=== PATIENT | male | born 1950 | race Caucasian/White ===

== ENCOUNTER 2021-05-26 15:33 | Emergency (ER) | payer OTHER ==
[~2021-05-26] VITALS: Ht 172.7 cm; Wt 80.3 kg
--- NOTE | ~2021-05-26 | EMS ---
[facility] [address] [place] [address] EMS Patient Care Report Name: WON CHEN Room #: REG MEGHAN Alvarenga#: [id number] Admission: 05/26/21 Attend Phys: Discharge: Date of : 48 Report #: [id number] THIS REPORT FOR: //name// Report Transmitted: 05/26/2021 15:33 EMS Care Summary [facility] MED-ACT Incident [id number] @ 05/26/2021 15:04 Incident Location [address] [place] [address] [place] [address] Patient WON CHEN Male, 71 Years 1950 Patient Address [address] [place] [address] Patient History Hypertension (HTN),Hyperlipidemia,Knee Replacement,Enlarged prostate, Patient Allergies Other drug allergy, Patient Medications Tamsulosin, Coumadin, Gabapentin, Cleocin HCL, Oxycodone, Bisacodyl, Atorvastatin, Docusate Sodium, Morphine, Ondansetron, Hydrocodone, Celecoxib, Acetaminophen, Promethazine, Tramadol, Temazepam, Toradol, Chief Complaint unable to cath pt's bladder Disposition Transported No Lights/[place] Reason Hemorrhage/Laceration Transported To [facility] Narrative 71 YOM post-op on a L total knee replacement today. Pt is unable to urinate and [facility] [address] [place] [address] EMS Patient Care Report Name: WON CHEN Room #: REG ER [place].#: [id number] Admission: 05/26/21 Attend Phys: Discharge: Date of : 48 Report #: [id number] bladder is distended. Staff at [facility] reported multiple attempts to cath the pt were unsuccessful and pt has minor bleeding from urethra. Pt is being transferred to [facility] ED for catheterization. Upon arrival, pt found lying in bed alert and oriented. Pt rated pain 7/10. Pt's nurse reported he was given 2 percocet and 1 toradol approx. 15 min prior to our arrival. Pt transferred to cot via sheet drag and secured in semi-kearney's position. Pt transported to [facility]. No changes in pt condition en route. Upon arrival, pt taken to room 9 and transferred via sheet drag. Report to attending RN. Initial Vitals @15:29P: 100,R: 12,BP: 133/70,Pain: 6/10,GCS: 15,SpO2: 95,Revised Trauma: 12, @15:21P: 98,R: 12,BP: 163/94,Pain: 7/10,GCS: 15,Temp: 97.7F,SpO2: 93,Revised Trauma: 12, Impression Injury of External Genitals Procedures @15:16ALS AssessmentResponse: UnchangedSucceeded@15:16Surgical Mask on PatientResponse: Unchanged Timeline 15:02,Call Received 15:02,Psap Call 15:04,Dispatched 15:06,En Route 15:10,On Scene 15:15,At Patient 15:16,ALS Assessment,Response: UnchangedSucceeded, 15:16,Surgical Mask on Patient,Response: Unchanged 15:21,BP: 163/94 M,PULSE: 98,RR: 12 R,SPO2: 93 Ox,ETCO2: ,BG: ,PAIN: 7,GCS: 15, 15:22,Depart Scene 15:29,BP: 133/70 M,PULSE: 100,RR: 12 R,SPO2: 95 Ox,ETCO2: ,BG: ,PAIN: 6,GCS: 15, 15:30,At Destination 15:44,Call Closed Disclaimer v1.1 Copyright 2020 [employer] This EMS Care Summary contains data elements from the applicable legal record (which may be displayed differently). It is designed to provide pertinent information for the following purposes: continuity of care, clinical quality, [address] [address] EMS Patient Care Report Name: CHENWON Room #: REG MEGHAN Alvarenga#: [id number] Admission: 05/26/21 Attend Phys: Discharge: Date of : 48 Report #: [id number] and state data reporting. The complete legal record is available to ED staff and administrators of the receiving hospital in [employer]'s Patient Tracker. All data is provided "as is."
--- NOTE | ~2021-05-26 | O ---
[facility] [address] [place] [address] OPERATIVE REPORT Name: WON CHEN [id number] Admission: 05/26/21 Attend Phys: Discharge: Date of : 48 Report #: [id number] THIS REPORT FOR: cc: FAM - Family physician unknown FAM - Family physician unknown Adriel Rodríguez MD ~ DATE OF SERVICE: 05/26/2021 PREOPERATIVE DIAGNOSIS: Urinary retention. POSTOPERATIVE DIAGNOSIS: Urinary retention. PROCEDURE: Bedside cystoscopy with complex Ross catheter placement. STAFF SURGEON: Adriel Rodríguez MD [employer]PORT OPERATIONS CREW MEMBER: None. ANESTHESIA: None. ESTIMATED BLOOD LOSS: None. COMPLICATIONS: None. SPECIMENS: None. DRAINS: A 16-[place] tip catheter. INDICATIONS FOR PROCEDURE: The patient is a pleasant 71-year-old white male who had undergone total knee arthroplasty earlier today at a surgical institute. He has a history of BPH and for which he takes tamsulosin. By noon, he was unable to urinate and had straight cath in and out once. By 2:00 ,he was unable to urinate, attempted to catheterize, second time was unsuccessful. He was brought via EMS to [facility] where nurses and doctors attempted to catheterize, was unsuccessful. We were consulted to assist and manage evaluation. DESCRIPTION OF PROCEDURE: I attempted to pull up the urethra with lube and just gently placed a 16-[place] tip catheter, but met resistance proximally. I elected to do a bedside cystoscopy. He was prepped out and 16-[place] flexible scope was put in place. ____ when his urethra was able to kind of hug anterior, find the sphincter and passed it through the prostate into the bladder. I suspect there was some kind of bulbous urethral false passage because prostate looked fine. A 0.035 Glidewire was placed through the flexible scope into the bladder and coiled. Flexible scope was removed and a 16-[place] tip was easily placed over the guidewire and secured with 10 mL of [facility] [address] [address] OPERATIVE REPORT Name: WON CHEN Room #: REG MEGHAN Alvarenga#: [id number] Admission: 05/26/21 Attend Phys: Discharge: Date of : 48 Report #: [id number] sterile water. Guidewire was removed, drained out over 800 mL of yasir-colored urine. He tolerated this extremely well. Due to the urinary retention and likely urethral injury, left the catheter in until next week from tomorrow and have remove the catheter in the morning about 7:00 a.m., cut the valve off, having to slide the catheter out. See me in the afternoon in the appendix clinic. By: [id number] Adriel Rodríguez MD /nt
[2021-05-26] MEDS ORDERED: FLOMAX0.4 MG PO (15:38)
[2021-05-26] MEDS ORDERED: COQ-1030 MG PO (15:38)
[2021-05-26] MEDS ORDERED: LIPITOR 20 MG T20 M1 PO (15:39)
[2021-05-27 00:30] VITALS: BP 124/77
== END 2021-05-27 00:38 | disposition short-term general hospital (02) ==
LOC: ER 15:33
DX: R33.9 Retention of urine, unspecified (principal); E78.00 Pure hypercholesterolemia, unspecified; Z79.899 Other long term (current) drug therapy; Z91.09 Other allergy status, other than to drugs and biological substances